=== PATIENT | male | born 1925 | race Caucasian/White ===

== ENCOUNTER 2017-06-25 12:33 | Inpatient (IN) ==
--- NOTE | 2017-06-25 12:53 | Emergency Department Note ---
Elijah Vick Brittany, am scribing for, and in the presence of, Rodolfo Wyatt MD 12: 50. Yoselin Vick James D, MD, personally performed the services described in this documentation, ascribed by Michelle Nava in my presence, and it is both accurate and complete 252 . Arrival - Arrival Chief Complaint: Fall Stated Complaint: fall ED Nursing Triage Note: C/O Falling on Thursday., patient's daughter states that he was evaluated on thursday at [facility] and had xray and lab's., patients daughter states she is wanting a second opinion with the patient to make sure nothing else is going on Mode of Arrival: Stretcher Limitations: No Limitations Source: Family - History of Present Illness HPI Narrative: This is an 89 y/o male,who presents to the ED by EMS for further evaluation S/P fall which occurred 6 days ago. His daugter pt was seen and evaluated 3 days ago at [facility]. At this time, pt had lab-work and x-rays preformed. His daughter states, " I just want to get a second opion and make sure nothing else is going on." Patient is unable to stand. Apparently prior to his fall on 06/20/2017 he was ambulating with a walker, although marginally. Pt has no other complaints/pain in the ED at this time. Pt has a PMHx of dyslipidemia and cardiac dysrhythmia. Pt has had an eye surgery and orthopedic surgery. Pt has a family medical hx of skin cancer, diabetes, and stroke. Pt denies a social Hx. Onset (ago): day(s) (Started 6 days ago) Consistency: constant Severity: moderate Allergies/Adverse Reactions: Allergies Allergy/AdvReac Type Severity Reaction Status Date / Time No Known Allergies Allergy Verified 06/25/17 12:56 Home Medications: Home Medications Medication Instructions Recorded Confirmed Type Acetaminophen Tab [Tylenol Tab] 325 mg PO Q6H 10/16/16 10/17/16 History Aspirin [Ecotrin] 81 mg PO DAILY 10/16/16 10/17/16 History Bimatoprost 0.01% Oph Soln 0.03 drop LEFT EYE BEDTIME 10/16/16 10/17/16 History [Lumigan] Finasteride 5 mg PO DAILY 10/16/16 10/17/16 History Flecainide [Tambocor] 50 mg PO BID 10/16/16 10/17/16 History Gluc/Chad-MSM#1/C/Cheikh/Roosevelt/Bor 1 each PO DAILY 10/16/16 10/17/16 History [Osteo Bi-Flex Caplet] Multivitamin (Ocuvite) [Ocuvite] 1 tablet PO DAILY 10/16/16 10/17/16 History Oxybutynin Chloride [Oxybutynin 10 mg PO DAILY 10/16/16 10/17/16 History Chloride ER] Tamsulosin [Flomax] 0.8 mg PO DAILY 10/16/16 10/17/16 History HYDROcodone/ACETAMIN 7.5-325 1 tablet PO Q4H PRN #30 tablet 10/17/16 Rx [[place] 7.5-325] Metoprolol Tartrate Tab [Lopressor 25 mg PO BID #60 tablet 10/18/16 Rx Tab] Medical,Surgical,& Family Hx - Medical History Cardio: History of: Cardiac Dysrhythmia Neurology: No history of: Seizures Endocrine: History of: Dyslipidemia Respiratory: History of: Obstructive Sleep Apnea Genitourinary: History of: Bladder Problem (urinary freq and urgency), Prostate Problems Other: History of: Cancer (skin cancer 09/2016) - Surgical History HEENT Surgeries: Surgical HX of: Eye Surgery (left eye) Orthopedic Surgeries: Surgical HX of;: Orthopedic Surgery (right lower leg fracture 1989) - Family History Family History: Reports;: Family Cancer (skin cancer), Family Diabetes (aunt), Family Stroke (mother) - Social History Smoking Status: Never smoker Frequency of Alcohol Use: None Type of Drug Use: None Exam Vital Signs: Vital Signs Temperature 98.9 F 06/25/17 12:34 Pulse Rate 78 06/25/17 13:50 Respiratory Rate 18 06/25/17 13:50 Blood Pressure 161/73 06/25/17 13:50 O2 Sat by Pulse Oximetry 100 06/25/17 13:50 GENERAL: This is a well-nourished well-developed chronically ill-appearing white male in no apparent distress. VITAL SIGNS: Reviewed HEENT: Head is atraumatic and normocephalic. Pupils are equal round react to light. Extraocular movements are intact. Oropharynx is benign with dry mucous membranes. NECK: Neck is soft and supple without tenderness. There are no masses. There is no lymphadenopathy. LUNGS: Lungs are clear to auscultation. Chest rises symmetrically. There is no chest wall tenderness. CV: Heart is regular rate and rhythm without murmurs rubs or gallops. ABDOMEN: Abdomen is soft, nontender to palpation. There are no abdominal abnormal masses palpated. There is no organomegaly. Bowel sounds are present and active. SKIN: Skin is warm and dry. No rash. EXTREMITIES: Patient has full range of motion without tenderness. There is no pedal edema. NEUROLOGIC: Awake alert and oriented 4. Cranial nerves II through XII are grossly intact. Motor is 2 over 5 in both lower extremities, 4/5 in both upper extremities. There is decreased sensation to light touch in the lower extremities bilaterally in a stocking glove distribution consistent with peripheral polyneuropathy. Deep tendon reflexes are 2+ and bilaterally equal. Course - Consultations Consultation #1: Discussed with hospitalist. Patient will be seen in the emergency department. Time: 14:20 Results - Labs CBC & BMP: 06/25/17 13:05 06/25/17 13:05 Lab Results: I have reviewed the patients labs - Diagnostic Findings Procedure: CT: image reviewed by me (CT head: No acute intracranial lesion or hemorrhage.) Disposition Clinical Impression: Generalized weakness, Peripheral polyneuropathy, Lower extremity weakness, Gait apraxia Case discussed with: patient, patient's family Disposition: Still a Patient Condition: Stable Time of Disposition: 14:20
[2017-06-25 13:25] LABS: Basophils % 0.3 % (0.0-0.8); Hematocrit 39.2 VOL% (42.0-52.0); Hemoglobin 13.9 GM/DL (14.0-18.0); Immature Granulocytes % 0.5 %; Immature Granulocytes Absolute 0.05 #; Lymphocytes # 2.3 10*3/uL (1.4-4.0); Mean Corpuscular HGB Conc 35.5 GM/DL (32-36); Mean Corpuscular Hemoglobin 30 PG (27-34); Mean Corpuscular Volume 83.9 FL (87-102); Mean Platelet Volume 10.3 FL (9.6-12.0); Monocytes % 9.8 % (1.7-12.7); Neutrophils % 67.4 % (38.7-73.9); Platelet Count 195 T/CUMM (130-400); Red Blood Count 4.67 MC/CUMM (3.8-5.5); Red Cell Distribution Width 13.3 % (9.3-17.3); White Blood Count 10.4 T/CUMM (4-12)
--- NOTE | 2017-06-25 13:32 | CT Report ---
CT brain Indication: Lower extremity weakness, neuropathy Comparison: None available Technique: Axial CT imaging of the brain is performed without contrast with 3 mm increments. Findings: No evidence of hemorrhage, mass mass effect midline shift or acute infarct seen. There is moderate diffuse cerebral atrophy. There are areas of decreased density seen within the white matter. Otherwise the brain parenchyma attenuation and differentiation appears within normal limits. The ventricles and cisterns are normal in caliber. No cranial or skull base abnormality is identified. Impression: No evidence of acute process or interval change. This CT exam was performed using one or more the following dose reduction techniques: Automated exposure control, adjustment of the MA and/or KV according to patient size, or use of iterative reconstruction technique. PROCEDURE INTERPRETED AT [facility] DEPARTMENT OF RADIOLOGY Final Report Signed by: Dr. William Weldon
[2017-06-25 14:04] LABS: Albumin 3.5 G/DL (3.4-5.0); Bilirubin,Total 1.2 MG/DL (0.2-1.0); Calcium 9.2 MG/DL (8.5-10.1); Potassium 4.4 MMOL/L (3.5-5.1); Total Protein 6.9 G/DL (6.4-8.3)
[2017-06-25 14:05] LABS: Apearance,Urine CLEAR (Clear); Bilirubin,Urine Negative (Negative); Blood, Urine Negative (Negative); Glucose,Urine (UA) Negative (Negative); Ketones,Urine Negative (Negative); Mucus,Urine Occasional /LPF (Occasional); Nitrite,Urine Negative (Negative); Protein,Urine Negative; RBC,Urine 1 /HPF (0-4); Urine Color Yellow (Yellow); Urine Urobilinogen < 2.0 EU/DL (0.2-1.0); WBC,Urine <1 /HPF (0-6)
[2017-06-25] MEDS ORDERED: DOCUSATE SODIUM 100 MG CAPSULE PO PRN (15:10)
[2017-06-25] MEDS ORDERED: ONDANSETRON 4 MG/2 ML VIAL IV PRN (15:10)
[2017-06-25] MEDS ORDERED: FUROSEMIDE 40 MG/4 ML VIAL IV STA (15:15)
[2017-06-25] MEDS ORDERED: FUROSEMIDE 40 MG/4 ML VIAL ONE (15:20)
--- NOTE | 2017-06-25 15:31 | Hospitalist History & Physical ---
Assessment and Plan (1) Gait apraxia Status: Acute Assessment and plan: Per daughter report, the patient has been non-ambulatory since he sustained a fall 6 days ago. The family reported that the patient is normally ambulatory and ambulates with a front rolling walker however he ambulates very slowly. She reported that each time the patient attempts to stand that his "legs give out". Upon visual inspection, the patient's legs were noted to be grossly edematous however no acute or profound deformities were noted. We will obtain x -rays for good measures. In addition, the patient has a very complex neurological history significant for cerebrovascular accident and cerebral aneurysm. CT scan was initially unremarkable; however at some point in time the patient will need MRI to rule out any acute processes. We will order MRI in a.m. Current Visit: Yes (2) Generalized weakness Status: Acute Assessment and plan: The daughter reported that the patient has experienced a significant decline in his functional status since sustaining a fall 6 days ago. She reports that the patient has become nonambulatory and unable to bear weight bilaterally. We will x-ray the patient's lower extremities, cervical, lumbar and thoracic spine. If findings are negative, we will consult PT and OT to evaluate and treat. Current Visit: Yes (3) Edema Status: Acute Assessment and plan: The patient's edema is chronic in nature per family report. We will gently diurese and obtain bilateral venous Doppler studies to rule out DVT. Current Visit: No History of Present Illness Chief complaint: Fall History of present illness: This is a very pleasant 89-year-old male that presented to the ED at [facility] this afternoon for the evaluation of a ground-level fall. The patient has a long and complex medical history significant for benign localized hyperplasia of the prostate, nonruptured cerebral aneurysm, cerebrovascular accident, cerebrovascular disease, chronic atrial fibrillation, hypertension, congestive heart failure, hyperlipidemia, anemia, obstructive sleep apnea, Olecranon bursitis of the right elbow, vitamin D deficiency, chronic lower extremity edema, and dementia. Patient has a surgical history significant for left eye surgery, and right open reduction and internal fixation of the right lower leg. The daughter reports the onset of symptoms 6 days prior to presentation. The patient was seen and evaluated 3 days ago at a restaurant clinic. At that time the patient was evaluated and labs were obtained; no abnormalities were noted. Since the fall 6 days ago, the daughter noted a gradual decline in her father's functional status. She reported that he generally ambulates very slow with a front rolling walker however, in recent days her brother has not been able to stand nor ambulate. In addition, the daughter reports that during the fall her son assisted her father up and thereafter her father has been complaining of some right knee pain. She became very concerned regarding the sudden changes in her father's functional ability and transported her father to the ED for further evaluation. The patient was assessed at the time of ED presentation. Labs were obtained; complete blood count reported white blood cell count 18.4, hemoglobin 13.9, hematocrit 39.2, and platelet count 195. Chemistry panel reported sodium at 136 , potassium 4.4, chloride 101, carbon dioxide 28, BUN 21, creatinine 1.20, glucose 117, calcium 9.2, total bilirubin 1.20, and albumin at 3.5. Urinalysis was essentially unremarkable. CT he had reported no evidence of acute process or interval change. After brief discussion with both Dr. Wyatt and Dr. Paris, the patient will be admitted to the hospitalist service for continuation of care. Due to the patient's complex cardiac history, a cardiology consultation has been requested. Home medications have been reviewed and reconciled CODE STATUS discussed; patient is a FULL CODE. Home Medications Medication Instructions Recorded Confirmed Type Acetaminophen Tab [Tylenol Tab] 325 mg PO Q6H 10/16/16 06/25/17 History Tamsulosin [Flomax] 0.4 mg PO QPM 10/16/16 06/25/17 History Metoprolol Tartrate Tab [Lopressor 25 mg PO BID #60 tablet 10/18/16 06/25/17 Rx Tab] Furosemide [Furosemide] 20 mg PO QAM 06/25/17 06/25/17 History Vit C/Vit E AC/Lut/Copper/Zinc 1 each PO BID 06/25/17 06/25/17 History [Preservision Lutein Softgel] Allergies Allergy/AdvReac Type Severity Reaction Status Date / Time No Known Allergies Allergy Verified 06/25/17 12:56 Medical,Surgical,& Family Hx - Medical History Cardio: History of: Cardiac Dysrhythmia, Hypertension, Pacemaker Neurology: No history of: Seizures Endocrine: History of: Dyslipidemia Respiratory: History of: Obstructive Sleep Apnea Genitourinary: History of: Bladder Problem (urinary freq and urgency), Prostate Problems Other: History of: Cancer (skin cancer 09/2016) - Surgical History HEENT Surgeries: Surgical HX of: Eye Surgery (left eye) Orthopedic Surgeries: Surgical HX of;: Orthopedic Surgery (right lower leg fracture 1989) - Family History Family History: Reports;: Family Cancer (skin cancer), Family Diabetes (aunt), Family Stroke (mother) - Social History Smoking Status: Never smoker Frequency of Alcohol Use: None Type of Drug Use: None 12 point system: reviewed and no additional remarkable complaints except as stated Exam - Constitutional Vitals: Period Temp Pulse Resp BP Sys/Michaels Pulse Ox Last 24 Hr 98.9 F-98.9 F 76-88 16-18 132-172/64-91 95-100 General appearance: normal weight, no acute distress - Head Head exam: Present: normal inspection, normocephalic, atraumatic - Eye Eye exam: Present: EOMI. Absent: conjunctival injection Pupils: Present: PURVI, normal accommodation - ENT ENT exam: Present: normal exam, normal external ear exam, normal oropharynx - Neck Neck exam: Present: normal inspection. Absent: lymphadenopathy, meningismus, thyromegaly - Respiratory Respiratory exam: Present: clear to auscultation bilaterally. Absent: rales, rhonchi, stridor, wheezes - Cardiovascular Cardiovascular exam: Present: regular rate and rhythm. Absent: carotid bruit, diastolic murmur, gallop, JVD, rubs, systolic murmur - GI/Abdominal GI/Abdominal exam: Present: normal bowel sounds, soft. Absent: distended, firm , guarding, tenderness - Extremities Exam Extremities exam: Present: normal inspection, normal capillary refill, edema (+ 4 edema noted to bilateral lower extremity) - Back Exam Back exam: Present: normal inspection - Neurological Exam Neurological exam: Present: alert, oriented X3, CN II-XII intact - Psychiatric Psychiatric exam: Present: normal affect, normal mood - Skin Skin exam: Present: normal color, warm, dry Results - Labs CBC & BMP: 06/25/17 13:05 06/25/17 13:05 Lab Results: I have reviewed the past 24 hour labs
--- NOTE | 2017-06-25 16:15 | XRay Report ---
XR ankle 2V BI Indication: Pain Comparison: None available Findings: No evidence of fracture seen. The alignment of the joints appears normal. Mild bilateral ankle degenerative change is present. No soft tissue abnormality is seen. Impression: Mild bilateral ankle osteoarthrosis. PROCEDURE INTERPRETED AT [facility] DEPARTMENT OF RADIOLOGY Final Report Signed by: Dr. William Weldon
--- NOTE | 2017-06-25 16:18 | XRay Report ---
XR femur BI Indication: Pain, edema Comparison: None available Findings: No evidence of fracture seen. The alignment of the joints appears normal. Mild bilateral hip and moderate bilateral tricompartmental knee degenerative change is present. There is joint effusion present in the right knee. No other soft tissue abnormality is seen. Impression: Right knee joint effusion. Hip and knee osteoarthrosis. PROCEDURE INTERPRETED AT [facility] DEPARTMENT OF RADIOLOGY Final Report Signed by: Dr. William Weldon
--- NOTE | 2017-06-25 16:20 | XRay Report ---
XR lumbar spine AP/LAT Indication: Back pain Comparison: None available Findings: No fracture is seen. Vertebral body heights and alignment are normal. There is loss of disc space and degenerative change severe at L2-3 and moderate at L3-4 and L4-5 and L5-S1. Mild to moderate changes are present remaining levels. Large amount of facet joint degenerative change is present in the lower lumbar spine. Impression: Multilevel degenerative changes as described above. PROCEDURE INTERPRETED AT [facility] DEPARTMENT OF RADIOLOGY Final Report Signed by: Dr. William Weldon
--- NOTE | 2017-06-25 16:22 | XRay Report ---
XR thoracic spine 2V ap/lat Indication: Back pain Comparison: None available Findings: No fracture is seen. Vertebral body heights and alignment are normal. There is mild to moderate multilevel disc space height loss and degenerative change. Impression: Mild to moderate degenerative changes thoracic spine. PROCEDURE INTERPRETED AT [facility] DEPARTMENT OF RADIOLOGY Final Report Signed by: Dr. William Weldon
--- NOTE | 2017-06-25 16:24 | Ultrasound Report ---
Venous Doppler ultrasound bilateral lower extremity Indication: Edema Comparison: None available Findings: No evidence of echogenic, noncompressible thrombus seen in the visualized veins of the extremities. Color Doppler venous waveform pattern is within normal limits. Impression: No evidence of deep venous thrombosis. Ultrasound images stored and captured. PROCEDURE INTERPRETED AT [facility] DEPARTMENT OF RADIOLOGY Final Report Signed by: Dr. William Weldon
--- NOTE | 2017-06-25 16:27 | XRay Report ---
XR cervical spine AP/LAT Indication: Cervicalgia Comparison: None available Findings: No fracture is seen. Vertebral body heights and alignment are normal. There is loss of disc space and degenerative change of moderate to severe at C3-4 C4-5 C5-6 and C6-C7. Hypertrophic osteophytes are present with bridging anteriorly. Impression: Multilevel spondylitic changes as described above. PROCEDURE INTERPRETED AT [facility] DEPARTMENT OF RADIOLOGY Final Report Signed by: Dr. William Weldon
[2017-06-25 16:38] LABS: Risk Ratio 5.4; VLDL CHOLESTEROL 43.2 MG/DL
[2017-06-25 16:39] LABS: Magnesium 2.3 MG/DL (1.8-2.4); Thyroid Stimulating Hormone 2.29 uIU/ml (0.358-3.74)
[2017-06-25] MEDS: ACETAMINOPHEN 325 MG TABLET PO SCH (18:57)
[2017-06-25] MEDS: ENOXAPARIN 40 MG/0.4 ML SYRINGE SUBCUT SCH (18:57)
[2017-06-25] MEDS: MULTIVITAMIN (OCUVITE) TABLET PO SCH (20:37)
[2017-06-25] MEDS: TAMSULOSIN 0.4 MG CAPSULE PO SCH (20:37)
[2017-06-25] MEDS: METOPROLOL TARTRATE 25 MG TABLET PO SCH (20:37)
[2017-06-26] MEDS: ACETAMINOPHEN 325 MG TABLET PO SCH ×6 (01:00→23:46)
[2017-06-26] MEDS ORDERED: LORazepam 2 MG/1 ML VIAL IV ONE (03:07)
[2017-06-26 05:40] LABS: Basophils % 0.2 % (0.0-0.8); Hematocrit 36.4 VOL% (42.0-52.0); Hemoglobin 12.6 GM/DL (14.0-18.0); Immature Granulocytes % 0.3 %; Immature Granulocytes Absolute 0.03 #; Lymphocytes # 1.9 10*3/uL (1.4-4.0); Lymphocytes % 19.4 % (21.2-54.2); Mean Corpuscular HGB Conc 34.6 GM/DL (32-36); Mean Corpuscular Hemoglobin 29 PG (27-34); Mean Corpuscular Volume 84.5 FL (87-102); Mean Platelet Volume 10.3 FL (9.6-12.0); Monocytes # 1.1 10*3/uL (0.11-0.8); Monocytes % 11.6 % (1.7-12.7); Neutrophils # 6.5 10*3/uL (1.4-7.4); Neutrophils % 68.5 % (38.7-73.9); Platelet Count 177 T/CUMM (130-400); Red Blood Count 4.31 MC/CUMM (3.8-5.5); White Blood Count 9.5 T/CUMM (4-12)
[2017-06-26 06:15] LABS: Albumin 2.8 G/DL (3.4-5.0); Bilirubin,Total 1.4 MG/DL (0.2-1.0); Calcium 8.5 MG/DL (8.5-10.1); Magnesium 2.3 MG/DL (1.8-2.4); Potassium 4.1 MMOL/L (3.5-5.1); Total Protein 5.9 G/DL (6.4-8.3)
--- NOTE | 2017-06-26 07:18 | XRay Report ---
Exam: XR chest 1V portable Date: 06/26/2017 4:00 AM Indication: Shortness of breath Comparison: 10/18/2016 Technical: AP Findings: Cardiac pacing device is present with atrial ventricular leads. The heart is normal in size. ASVD is present. No obvious infiltrates. Mediastinum is bony structures reveal no acute findings with lateral marginal osteophytes present. Arthritic changes are present over the shoulders. No pneumothorax. Minimal bibasal atelectasis without effusions or consolidations Impression: 1. Stable appearance of the cardiac pacer device 2. No obvious consolidating infiltrates with minimal atelectatic change in the bases bilaterally PROCEDURE INTERPRETED AT [facility] DEPARTMENT OF RADIOLOGY Final Report Signed by: Dr. Tomi Lee
--- NOTE | 2017-06-26 09:09 | Hospitalist Progress Note ---
Assessment and Plan (1) HTN (hypertension) Status: Acute Assessment and plan: The patient's family wishes to move away from metoprolol due to concerns about worsening his mental status. I am going to switch him to Coreg. The patient's family is worried about an occult fracture of the hip or right knee. I am going to order CAT scan of both. I have asked the case management specialist to discuss equipment needs with the family and home health alternatives. I anticipate discharge home tomorrow. Current Visit: No Qualifiers: Hypertension type: essential hypertension Qualified Code(s): I10 - Essential (primary) hypertension (2) Peripheral polyneuropathy Status: Acute Current Visit: Yes (3) Generalized weakness Status: Acute Current Visit: Yes (4) Lower extremity weakness Status: Acute Current Visit: Yes (5) Gait apraxia Status: Acute Current Visit: Yes Hospitalist: Subjective Interval history: The patient was admitted to the hospital yesterday afternoon on account of right hip and right knee pain. Plain x-rays did not reveal any fracture. The patient continues to have considerable right knee pain and lack of function and inability to stand. I had 30 minute patient family conference with the patient's daughter concerning the patient's stepwise decline in mental status. The patient has evidence of behavioral changes consistent with Alzheimer's process which became symptomatic about 2 years ago. The patient had a stepwise decline last May when he went from being an avid book reader with 5 or 6 books consumed per week down to being uninterested in reading books. The patient would rate the same book over and over without realizing. The patient's family began staying with him and rotating weeks. They live out of town. They have been able to maintain his independent function through this assistance. In the last 4 weeks the patient has lost even disability to live in an assisted fashion. The patient has had sundowning behaviors at home which require nightly interventions. The family now notices his mobility is getting worse and are planning for an immobile future. I discussed with him the fact that he is gone from an assisted living status in the last year now being and longterm living level. I have asked the case management specialist to assist them in determining where it is best to care for him and what equipment that they will need. Exam - Constitutional Vitals: Period Temp Pulse Resp BP Sys/Michaels Pulse Ox Last 24 Hr 98.9 F-100.0 F 70-96 16-20 112-179/55-92 91-100 General appearance: no acute distress (The patient has short-term memory loss and has mild confusion.) - Respiratory Respiratory exam: Present: clear to auscultation bilaterally - Cardiovascular Cardiovascular exam: Present: regular rate and rhythm - GI/Abdominal GI/Abdominal exam: Present: normal bowel sounds - Extremities Exam Extremities exam: Present: other (The right knee is swollen and tender consistent with osteoarthritis. He has mild range of motion pain in the right hip.) Results - Labs CBC & BMP: 06/26/17 05:01 06/26/17 05:01 Lab Results: I have reviewed the past 24 hour labs
[2017-06-26] MEDS: METOPROLOL TARTRATE 25 MG TABLET PO SCH (09:53)
[2017-06-26] MEDS: CARVEDILOL 12.5 MG TABLET PO SCH ×2 (10:05→20:48)
[2017-06-26] MEDS: PANTOPRAZOLE 40 MG TABLET PO SCH (10:05)
[2017-06-26] MEDS: MULTIVITAMIN (OCUVITE) TABLET PO SCH ×2 (10:05→20:48)
--- NOTE | 2017-06-26 10:06 | Case Mgmt Physician Query Form ---
TB Signs and Symptoms Screening ([place]) INSTRUCTIONS: To be completed annually on residents/staff with a significant Tuberculin Skin Test (TST) upon admission/hire or a prior significant TST. To be completed on all staff at hire. Please respond to each listed symptom with an (X) in either the "YES" or "NO" box. Do you currently have any of the following symptoms: YES NO ( ) ( X) A cough If yes, is it: ( ) Productive ( ) Non- productive ( ) ( X) Hemoptysis (spitting up blood) ( ) (X ) Chest pains ( ) (X ) Weight Loss ( ) (X ) Fever ( ) (X ) Night Sweats ( ) (X ) Weakness ( ) (X ) Loss of Appetite ( ) (X ) Difficulty Breathing If you answered YES" to any of the above questions, how long have symptoms been present? Comments: TAVON
[2017-06-26] MEDS ORDERED: TUBERCULIN SKIN TEST 0.1 ML SYRINGE INTRADERM ONE (11:00)
[2017-06-26] MEDS: ACETAMINOPHEN 325 MG TABLET PO PRN (12:34)
--- NOTE | 2017-06-26 14:31 | CT Report ---
History: Knee pain after fall Date: 06/26/2017 Study: CT right knee without contrast Comparison exam: Right femur x-ray 06/25/[address] sections were obtained through the right knee without IV contrast. Multiplanar reconstruction images are also evaluated. This CT exam was performed using one or more the following dose reduction techniques: Automated exposure control, adjustment of the MA and/or KV according to patient size, or use of iterative reconstruction technique. There is no acute fracture or dislocation. There is moderate osteophyte formation in all 3 knee compartments. There is only mild joint space narrowing and eburnation in the medial knee compartment. There is a moderate suprapatellar joint effusion. There is chondrocalcinosis of the menisci such as that which can be seen with CPPD. There is a small 4 mm metallic density foreign body in the soft tissues posteriorly and medially at the proximal tibial metaphysis level, presumably chronic. Impression: No acute fracture. Osteoarthritis. Joint effusion. Chondrocalcinosis of the menisci PROCEDURE INTERPRETED AT [facility] DEPARTMENT OF RADIOLOGY Final Report Signed by: Dr. Karen Leal
--- NOTE | 2017-06-26 14:37 | CT Report ---
History: Right hip pain after fall Date: 06/26/2017 Study: 06/26/2017 Comparison exam: No previous hip CT Thin spiral CT sections were obtained through the right hip without IV contrast. Multiplanar reconstruction images are also evaluated. This CT exam was performed using one or more the following dose reduction techniques: Automated exposure control, adjustment of the MA and/or KV according to patient size, or use of iterative reconstruction technique. There is no fracture, dislocation, or acute bony abnormality. There is moderate joint space narrowing of the right hip with mild osteophyte formation. There is some chondrocalcinosis of the labrum of the hip. There is a fat-containing right inguinal hernia. A Denis catheter is in place. There is a small amount of air within the lumen of the bladder which is presumably related to recent catheter placement Impression: No acute bony abnormality. Osteoarthritis. Chondrocalcinosis of the labrum. Fat-containing right inguinal hernia PROCEDURE INTERPRETED AT [facility] DEPARTMENT OF RADIOLOGY Final Report Signed by: Dr. Karen Leal
--- NOTE | 2017-06-26 16:44 | Cardiology Consult Note ---
Peter Vick Vanessa RN, am scribing for, and in the presence of, Irene Boo DO 16 :43. Assessment and Plan - Time spent with patient Time spent with patient: Greater than 30 minutes (Due to assessment, planning, pigmentation, medication review) (1) Dementia Status: Chronic Assessment and plan: Patient has had a progressive decline of cognitive function over the past 12 months or so. Patient is now having increasing sundowning behaviors and is losing ability to function in assisted living environment. Patient is being evaluated for transfer to [facility]. Current Visit: Yes Qualifiers: Dementia type: Alzheimer's disease (2) Generalized weakness Status: Chronic Assessment and plan: PT and OT have been consulted. Current Visit: Yes (3) Gait apraxia Status: Acute Assessment and plan: This has gradually worsened, and he has had multiple falls. His mobility is also severely reduced now. PT and OT have been consulted as well. Current Visit: Yes (4) HTN (hypertension) Status: Chronic Assessment and plan: Family reports patient experienced some rebound hypertension and they resumed metoprolol tartrate. Since admission, family has requested to not continue metoprolol. Metoprolol discontinued. Carvedilol 12.5 mg by mouth twice daily has been started per hospital medicine. Agree with plans. Current Visit: No Qualifiers: Hypertension type: essential hypertension Qualified Code(s): I10 - Essential (primary) hypertension (5) Paroxysmal atrial fibrillation Status: Chronic Assessment and plan: Ventricular response is controlled. Patient has appropriate AV pacing. He has not anticoagulated for stroke prevention due to age, high fall risk, and history of multiple falls. His daughter states that he falls multiple times in a week. She states that he fell on Thursday and has not gotten up since this time. Current Visit: Yes (6) Hyperlipidemia Status: Chronic Assessment and plan: Patient is not currently on a lipid-lowering agent. FLP this admission noted. Current Visit: Yes (7) Obstructive sleep apnea Status: Chronic Assessment and plan: Continue CPAP. Current Visit: Yes History of Present Illness - Data of Consult Patient: known to practice within the last 3 years Consult date: 06/26/17 Requesting Physician: Rachana Bah - Consult Narrative Reason for consult: s/p multiple falls & generalized weakness with positive cardiac history History of present illness: PRIMARY FABRICATOR SPECIAL ITEMS: DR. MCGINNIS Mr. Menchaca is a 89 year old white male with risk factor significant for: Age, hypertension, dyslipidemia, and he has never smoked. Past medical history includes paroxysmal atrial fibrillation, CVA, Alzheimer's dementia, and third- degree AVB now status post dual-chamber pacemaker implant. Patient also has chronic bilateral lower extremity edema. Patient was last seen in clinic by Dr. Mcginnis on April 02. Patient's family was present with him. Family requested to stop the flecainide, and upon discontinuation of the medication, pacemaker programmed for atrial preference pacing to manage any potential atrial fibrillation. It was also discussed with the family, at their request, to discontinue the metoprolol by weaning patient off of it over a period of 3 days. Pacemaker interrogation June 16 with appropriate functioning and essentially 100% AV paced. Patient was brought to [place]'s ED yesterday afternoon June 25 by his family for evaluation status post fall. Patient has reportedly had multiple falls at home over the past couple weeks, he has had an increase in urinary incontinence , and he has not been able to do a lot of walking or weightbearing activity. Patient has also reportedly had a personality change. While in the ER, patient reported some right hip and knee pain. Venous Doppler ultrasound negative for DVT finding. Chest x-ray with minimal bibasilar atelectasis. Patient has had thoracic, cervical, ankle/femur x-rays which show degenerative changes but no fractures or other abnormality. CT of knee and hip were obtained this morning. Cardiology was consulted to see patient because he has a cardiac history. Patient seen and examined. Echocardiogram is being obtained at bedside currently. Mr. Menchaca is is no acute distress. He is pleasant but is mildly confused. Denies chest pain/discomfort, dyspnea, or anginal complaint. Denies orthopnea, PND, palpitations, recent worsening in severity of lower extremity edema. Patient's daughter is present with him this morning. Daughter reports patient is being set up for discharge [facility] in [place] for rehab and continuity of care. Patient has reportedly had a significant mental status decline over the past month, and he is no longer able to function with assisted living environment. His mobility is also greatly decreasing, and he is having an increase in behavior requiring lots of help at night at home by his family, and it has gotten to the point that the family feels they are not able to continue doing this due to patient's physical size and increasing combativeness at night. Labs reviewed. Triglycerides and total cholesterol slightly elevated 216, 227 respectively. Labs otherwise overall unremarkable. BP 140/70. EKG and ekg monitor with AV pacing. CC: Eitan Dior MD - Home Medications and Allergies Home Medications: Home Medications Medication Instructions Recorded Confirmed Type Acetaminophen Tab [Tylenol Tab] 325 mg PO Q6H 10/16/16 06/25/17 History Tamsulosin [Flomax] 0.4 mg PO QPM 10/16/16 06/25/17 History Metoprolol Tartrate Tab [Lopressor 25 mg PO BID #60 tablet 10/18/16 06/25/17 Rx Tab] Furosemide [Furosemide] 20 mg PO QAM 06/25/17 06/25/17 History Vit C/Vit E AC/Lut/Copper/Zinc 1 each PO BID 06/25/17 06/25/17 History [Preservision Lutein Softgel] Allergies/Adverse Reactions: Allergies Allergy/AdvReac Type Severity Reaction Status Date / Time No Known Allergies Allergy Verified 06/25/17 12:56 ROS unobtainable: due to mental status, due to dementia 12 point system: reviewed and no additional remarkable complaints except as stated (The patient's daughter I discussed with the bedside. He has had just a general downhill decline and he has fallen many times normally he is able to get up on his own. He lives with his 84-year-old he fell on Thursday just has not been able to recover. I do not find any evidence of any acute ongoing cardiopulmonary process he has a pacemaker that is about 7 months old male I think we can discontinue his Holter monitor because it has been a point of contention and aggravation for him. I discussed with his daughter at the bedside I will review his transthoracic echo and discuss with her tomorrow) Medical,Surgical,& Family Hx - Medical History Cardio: History of: Cardiac Dysrhythmia (Afib), Hypertension, Pacemaker Neurology: No history of: Seizures HEENT: History of: Glaucoma (Bilaterally) Endocrine: History of: Dyslipidemia Respiratory: History of: Obstructive Sleep Apnea Genitourinary: History of: Bladder Problem (urinary freq and urgency), Prostate Problems Gastrointestinal: History of: GERD Other: History of: Cancer (skin cancer 09/2016) - Surgical History HEENT Surgeries: Surgical HX of: Eye Surgery (Cataract Left Eye) Abdominal Surgeries: Surgical HX of: Hernia Repair Orthopedic Surgeries: Surgical HX of;: Orthopedic Surgery (right lower leg fracture 1989) - Family History Family History: Reports;: Family Cancer (skin cancer), Family Diabetes (aunt), Family Stroke (mother) - Social History Smoking Status: Never smoker Frequency of Alcohol Use: None Type of Drug Use: None Physical Examination Vital Signs Temp Pulse Resp BP Pulse Ox 98.9 F 83 18 132/77 97 06/25/17 12:34 06/25/17 12:34 06/25/17 12:34 06/25/17 12:34 06/25/17 12:34 General: Present: No Apparent Distress, Other (pleasantly; mildly confused at times) HEENT: Present: EOMI, PERRL, Normocephaly. Absent: Jaundice, Pallor Neck: Present: Supple Neck, Midline Trachea Cardiac: Present: Irregularly Regular, S1/S2, No Murmur, Other (Rhythm strips are primarily paced with intermittent breakthrough rate.). Absent: Tachycardia , Bradycardia Lungs: Present: Clear Ascult./Percussion, No Wheeze, Rales, Rhonchi Neuro: Present: Weakness, Grossly Intact. Absent: Numbness, Resting Tremor, Essential Tremor Abdomen: Present: Soft, Active Bowel Sounds. Absent: Ascites, Tender, Firm, Distended Skin: Present: Clear. Absent: Rash, Suspicious Lesions, Bruising Musculoskeletal: Present: Decreased Range of Motion, No Fluid Collection Extremities: Present: No Clubbing, No Cyanosis, Edema (1-2+ RLE, edamatous right kneecap), Capillary Refill (Normal), Other (Warm, dry) Result/EKG - Labs CBC & BMP: 06/26/17 05:01 06/26/17 05:01 Lab Results: I have reviewed the past 24 hour labs Labs: Laboratory Results - last 24 hr 06/25/17 06/25/17 06/25/17 13:05 13:05 13:05 WBC 10.4 RBC 4.67 Hgb 13.9 L Hct 39.2 L MCV 83.9 L MCH 30 MCHC 35.5 RDW 13.3 Plt Count 195 MPV 10.3 Neut % (Auto) 67.4 Lymph % (Auto) 22.0 Dale % (Auto) 9.8 Eos % (Auto) 0.0 Baso % (Auto) 0.3 Neut # (Auto) 7.0 Lymph # (Auto) 2.3 Dale # (Auto) 1.0 H Eos # (Auto) 0.0 Baso # (Auto) 0.0 Immature Gran % 0.5 Nucleated RBC % 0.0 Immature Gran # 0.05 Nucleated RBCs # 0.00 Immature Plt Fraction 0.0 Sodium 136 Potassium 4.4 Chloride 101 Carbon Dioxide 28 Anion Gap 11.4 BUN 21 H Creatinine 1.20 GFR Calculation 70 BUN/Creatinine Ratio 17.00 Glucose 117 H Calculated Osmolality 275.0 Calcium 9.2 Magnesium Total Bilirubin 1.20 H AST 20 ALT 20 Alkaline Phosphatase 94 B-Natriuretic Peptide Total Protein 6.9 Albumin 3.5 Globulin 3.4 Albumin/Globulin Ratio 1.0 L Triglycerides Cholesterol LDL Cholesterol VLDL Cholesterol HDL Cholesterol Heart Disease Risk Ratio Vitamin B12 508 Free T4 TSH 3rd Generation Urine Color Urine Appearance Urine pH Ur Specific Park Urine Protein Urine Glucose (UA) Urine Ketones Urine Blood Urine Nitrate Urine Bilirubin Urine Urobilinogen Urine Leukocytes Urine RBC Urine WBC Urine Mucus Ur Culture Indicated? 06/25/17 06/25/17 06/25/17 13:05 13:05 13:05 WBC RBC Hgb Hct MCV MCH MCHC RDW Plt Count MPV Neut % (Auto) Lymph % (Auto) Dale % (Auto) Eos % (Auto) Baso % (Auto) Neut # (Auto) Lymph # (Auto) Dale # (Auto) Eos # (Auto) Baso # (Auto) Immature Gran % Nucleated RBC % Immature Gran # Nucleated RBCs # Immature Plt Fraction Sodium Potassium Chloride Carbon Dioxide Anion Gap BUN Creatinine GFR Calculation BUN/Creatinine Ratio Glucose Calculated Osmolality Calcium Magnesium 2.3 Total Bilirubin AST ALT Alkaline Phosphatase B-Natriuretic Peptide 88 Total Protein Albumin Globulin Albumin/Globulin Ratio Triglycerides Cholesterol LDL Cholesterol VLDL Cholesterol HDL Cholesterol Heart Disease Risk Ratio Vitamin B12 Free T4 1.09 TSH 3rd Generation 2.290 Urine Color Urine Appearance Urine pH Ur Specific Park Urine Protein Urine Glucose (UA) Urine Ketones Urine Blood Urine Nitrate Urine Bilirubin Urine Urobilinogen Urine Leukocytes Urine RBC Urine WBC Urine Mucus Ur Culture Indicated? 06/25/17 06/25/17 06/26/17 13:05 13:12 05:01 WBC 9.5 RBC 4.31 Hgb 12.6 L Hct 36.4 L MCV 84.5 L MCH 29 MCHC 34.6 RDW 13.0 Plt Count 177 MPV 10.3 Neut % (Auto) 68.5 Lymph % (Auto) 19.4 L Dale % (Auto) 11.6 Eos % (Auto) 0.0 Baso % (Auto) 0.2 Neut # (Auto) 6.5 Lymph # (Auto) 1.9 Dale # (Auto) 1.1 H Eos # (Auto) 0.0 Baso # (Auto) 0.0 Immature Gran % 0.3 Nucleated RBC % 0.0 Immature Gran # 0.03 Nucleated RBCs # 0.00 Immature Plt Fraction 0.0 Sodium Potassium Chloride Carbon Dioxide Anion Gap BUN Creatinine GFR Calculation BUN/Creatinine Ratio Glucose Calculated Osmolality Calcium Magnesium Total Bilirubin AST ALT Alkaline Phosphatase B-Natriuretic Peptide Total Protein Albumin Globulin Albumin/Globulin Ratio Triglycerides 216 H Cholesterol 227 H LDL Cholesterol 151.0 VLDL Cholesterol 43.2 HDL Cholesterol 42 Heart Disease Risk Ratio 5.40 Vitamin B12 Free T4 TSH 3rd Generation Urine Color Yellow Urine Appearance Clear Urine pH 6.0 Ur Specific Park 1.010 Urine Protein Negative Urine Glucose (UA) Negative Urine Ketones Negative Urine Blood Negative Urine Nitrate Negative Urine Bilirubin Negative Urine Urobilinogen < 2.0 H Urine Leukocytes Negative Urine RBC 1 Urine WBC <1 Urine Mucus Occasional Ur Culture Indicated? Not indicated 06/26/17 05:01 WBC RBC Hgb Hct MCV MCH MCHC RDW Plt Count MPV Neut % (Auto) Lymph % (Auto) Dale % (Auto) Eos % (Auto) Baso % (Auto) Neut # (Auto) Lymph # (Auto) Dale # (Auto) Eos # (Auto) Baso # (Auto) Immature Gran % Nucleated RBC % Immature Gran # Nucleated RBCs # Immature Plt Fraction Sodium 136 Potassium 4.1 Chloride 99 Carbon Dioxide 29 Anion Gap 12.1 BUN 22 H Creatinine 1.30 GFR Calculation 64 BUN/Creatinine Ratio 16.00 Glucose 110 H Calculated Osmolality 275.0 Calcium 8.5 Magnesium 2.3 Total Bilirubin 1.40 H AST 21 ALT 16 Alkaline Phosphatase 84 B-Natriuretic Peptide Total Protein 5.9 L Albumin 2.8 L Globulin 3.1 Albumin/Globulin Ratio 0.9 L Triglycerides Cholesterol LDL Cholesterol VLDL Cholesterol HDL Cholesterol Heart Disease Risk Ratio Vitamin B12 Free T4 TSH 3rd Generation Urine Color Urine Appearance Urine pH Ur Specific Park Urine Protein Urine Glucose (UA) Urine Ketones Urine Blood Urine Nitrate Urine Bilirubin Urine Urobilinogen Urine Leukocytes Urine RBC Urine WBC Urine Mucus Ur Culture Indicated? - Diagnostic Findings Procedure: Chest x-ray: image reviewed by me, report reviewed by me, Ultrasound : image reviewed by me, report reviewed by me, X-ray: image reviewed by me, report reviewed by me - EKG EKG results: interpreted by me, no acute changes Ema Vick Shea, , personally performed the services described in this documentation, ascribed by Teresita Green RN in my presence, and it is both accurate and complete [id number] .
--- NOTE | 2017-06-26 17:31 | ECHO Report ---
Grady Menchaca Exam Date: 06/26/2017 10:32 Referring Physician: Technologist: Irasema Dill RDCS Age: 89 Ht (in): 75 Wt (lb): 220 Gender: M Exam Location: [facility] Echo Indications: Weakness, Essential (primary) hypertension, CAD with hx SSS, Presence of cardiac pacemaker, Peripheral polyneuropathy, PERRY, Edema, unspecified, Ataxic gait BP: 140 / 71 HR: 96 Rhythm: Pacemaker Technical Quality: Limited IMPRESSIONS Left ventricular ejection fraction is estimated at 55 %. Diastolic parameters are equivocal. There is septal bounce either due to pacing or underlying bundle branch block. Tricuspid regurgitation velocities suggest a RVSP of 31 mmHg plus the right atrial pressure. Catheter/pacemaker wire in the right atrial cavity. Trace to mild mitral valve regurgitation. MEASUREMENTS (Male / Female) Normal Values 2D ECHO LV Diastolic Diameter PLAX 4.9 cm 4.2 - 5.9 / 3.9 - 5.3 cm LV Systolic Diameter PLAX 4.0 cm LV Fractional Shortening PLAX 18.5 % IVS Diastolic Thickness 1.2 cm 0.6 - 1.0 / 0.6 - 0.9 cm LVPW Diastolic Thickness 1.1 cm 0.6 - 1.0 / 0.6 - 0.9 cm RV Internal Dim ED PLAX 3.1 cm Aortic Root Diameter 3.3 cm LA Systolic Diameter LX 4.4 cm 3.0 - 4.0 / 2.7 - 3.8 cm DOPPLER TR Peak Velocity 280.0 cm/s TR Peak Gradient 31.4 mmHg FINDINGS Left Ventricle Normal left ventricular cavity size. Mild left ventricular hypertrophy. Left ventricular ejection fraction is estimated at 55 %. Diastolic parameters are equivocal. There is septal bounce either due to pacing or underlying bundle branch block Right Ventricle Mildly increased right ventricular size. Catheter/pacemaker wire visualized in the right ventricle. Right Atrium The right atrium is mildly enlarged. Catheter/pacemaker wire in the right atrial cavity. Left Atrium The left atrium is mildly enlarged. Mitral Valve Mildly thickened mitral valve. Trace to mild mitral valve regurgitation. Aortic Valve Aortic valve sclerosis without stenosis or regurgitation. Tricuspid Valve Morphologically normal tricuspid valve. Trace to mild tricuspid valve regurgitation. Tricuspid regurgitation velocities suggest a RVSP of 31 mmHg plus the right atrial pressure. Pulmonic Valve Morphologically normal pulmonic valve without significant stenosis. There is no pulmonic regurgitation. Pericardium Normal pericardium without effusion. Aorta Normal ascending aorta dimension. Irene Boo (Electronically Signed) Final Date: 26 June 2017 17:14
[2017-06-26] MEDS: ENOXAPARIN 40 MG/0.4 ML SYRINGE SUBCUT SCH (20:48)
[2017-06-26] MEDS: TAMSULOSIN 0.4 MG CAPSULE PO SCH (20:48)
[2017-06-27] MEDS: ACETAMINOPHEN 325 MG TABLET PO SCH ×3 (06:37→19:35)
[2017-06-27] MEDS: CARVEDILOL 12.5 MG TABLET PO SCH ×2 (09:42→20:28)
[2017-06-27] MEDS: FUROSEMIDE 20 MG TABLET PO SCH (09:43)
[2017-06-27] MEDS: PANTOPRAZOLE 40 MG TABLET PO SCH (09:43)
[2017-06-27] MEDS: MULTIVITAMIN (OCUVITE) TABLET PO SCH ×2 (09:44→20:28)
--- NOTE | 2017-06-27 10:40 | Cardiology Progress Note ---
Assessment and Plan (1) Dementia Status: Chronic Assessment and plan: Patient has had a progressive decline of cognitive function over the past 12 months or so. Patient is now having increasing sundowning behaviors and is losing ability to function in assisted living environment. Patient is being evaluated for transfer to [facility] Current Visit: Yes Qualifiers: Dementia type: Alzheimer's disease (2) Generalized weakness Status: Chronic Assessment and plan: PT and OT have been consulted. Current Visit: Yes (3) Gait apraxia Status: Acute Assessment and plan: This has gradually worsened, and he has had multiple falls. His mobility is also severely reduced now. PT and OT have been consulted as well. Current Visit: Yes (4) HTN (hypertension) Status: Chronic Current Visit: No Qualifiers: Hypertension type: essential hypertension Qualified Code(s): I10 - Essential (primary) hypertension (5) Paroxysmal atrial fibrillation Status: Chronic Assessment and plan: Ventricular response is controlled. Patient has appropriate AV pacing. He has not anticoagulated for stroke prevention due to age, high fall risk, and history of multiple falls. His daughter states that he falls multiple times in a week. She states that he fell on Thursday and has not gotten up since this time. Current Visit: Yes (6) Hyperlipidemia Status: Chronic Assessment and plan: Patient is not currently on a lipid-lowering agent. FLP this admission noted. Given his muscle weakness I think we should stay off a statin. Current Visit: Yes (7) Obstructive sleep apnea Status: Chronic Assessment and plan: Continue CPAP. Current Visit: Yes Cardiology - PN: Subj Interval history: I discussed the findings of the echo the patient and his daughter at the bedside. He remains very weak. There is appears to be no acute changes in his cardiovascular status appears to be stable. I have nothing further to add at this time and will sign off. I discussed with the patient's daughter. Anticipate transfer to swing bed/LTAC in early week. Case management is working on this. I suspect the patient will likely be a half-way candidate from this point forward. Exam (Progress Note) - Constitutional Vitals: Period Temp Pulse Resp BP Sys/Michaels Pulse Ox Last 24 Hr 97.8 F-99.9 F 84-94 16-20 131-160/63-76 90-98 General appearance: normal weight - Head Head exam: Present: normal inspection - Eye Eye exam: Present: EOMI Pupils: Present: PURVI - ENT ENT exam: Present: normal exam - Respiratory Respiratory exam: Present: clear to auscultation bilaterally - Cardiovascular Cardiovascular exam: Present: regular rate and rhythm - GI/Abdominal GI/Abdominal exam: Present: normal bowel sounds Result/EKG - Labs CBC & BMP: 06/26/17 05:01 06/26/17 05:01
--- NOTE | 2017-06-27 12:40 | Hospitalist Progress Note ---
Assessment and Plan (1) HTN (hypertension) Status: Chronic Assessment and plan: The patient is now on Coreg for blood pressure and heart rate control. Mental status is about the same. The patient's family has decided they wish him to be transferred to swing bed at [place] for further rehab. If the patient does not improve mental function he would then go to the half-way. Current Visit: No Qualifiers: Hypertension type: essential hypertension Qualified Code(s): I10 - Essential (primary) hypertension (2) Peripheral polyneuropathy Status: Acute Current Visit: Yes (3) Generalized weakness Status: Chronic Current Visit: Yes (4) Lower extremity weakness Status: Acute Current Visit: Yes (5) Gait apraxia Status: Acute Current Visit: Yes Hospitalist: Subjective Interval history: The patient's family has begun to accept his progressive dementia. They are making arrangements for transfer to swing bed in [place]. Exam - Constitutional Vitals: Period Temp Pulse Resp BP Sys/Michaels Pulse Ox Last 24 Hr 97.8 F-99.9 F 84-94 16-20 131-160/63-76 90-98 General appearance: no acute distress - Head Head exam: Present: normocephalic - Respiratory Respiratory exam: Present: clear to auscultation bilaterally - Cardiovascular Cardiovascular exam: Present: regular rate and rhythm - GI/Abdominal GI/Abdominal exam: Present: normal bowel sounds Results - Labs CBC & BMP: 06/26/17 05:01 06/26/17 05:01 Lab Results: I have reviewed the past 24 hour labs
[2017-06-27] MEDS: ACETAMINOPHEN 325 MG TABLET PO PRN (15:40)
[2017-06-27] MEDS: ENOXAPARIN 40 MG/0.4 ML SYRINGE SUBCUT SCH (20:28)
[2017-06-27] MEDS: TAMSULOSIN 0.4 MG CAPSULE PO SCH (20:28)
[2017-06-28] MEDS: ACETAMINOPHEN 325 MG TABLET PO SCH ×4 (01:47→18:37)
--- NOTE | 2017-06-28 08:15 | Hospitalist Progress Note ---
Assessment and Plan (1) HTN (hypertension) Status: Chronic Assessment and plan: The patient is now on Coreg for blood pressure and heart rate control. Mental status is about the same. The patient's family has decided they wish him to be transferred to swing bed at [place] for further rehab. If the patient does not improve mental function [facility] would then [facility]. Current Visit: No Qualifiers: Hypertension type: essential hypertension Qualified Code(s): I10 - Essential (primary) hypertension (2) Peripheral polyneuropathy Status: Acute Current Visit: Yes (3) Generalized weakness Status: Chronic Current Visit: Yes (4) Lower extremity weakness Status: Acute Current Visit: Yes (5) Gait apraxia Status: Acute Current Visit: Yes Hospitalist: Subjective Interval history: Mr. Menchaca was stable overnight and had good rest. The patient's family has requested placement at swing bed in [facility]. We hope to accomplish that on Thursday morning. Will have the Denis catheter out in the morning. Exam - Constitutional Vitals: Period Temp Pulse Resp BP Sys/Michaels Pulse Ox Last 24 Hr 99.1 F-100.6 F 83-92 16-20 130-171/61-79 93-94 General appearance: no acute distress - Respiratory Respiratory exam: Present: clear to auscultation bilaterally - Cardiovascular Cardiovascular exam: Present: regular rate and rhythm - GI/Abdominal GI/Abdominal exam: Present: normal bowel sounds Results - Labs CBC & BMP: 06/26/17 05:01 06/26/17 05:01 Lab Results: I have reviewed the past 24 hour labs Labs: CT scan of the hip and leg revealed no fracture. Swelling is improved.
[2017-06-28] MEDS: MULTIVITAMIN (OCUVITE) TABLET PO SCH ×2 (10:16→21:51)
[2017-06-28] MEDS: CARVEDILOL 12.5 MG TABLET PO SCH ×2 (10:17→21:51)
[2017-06-28] MEDS: PANTOPRAZOLE 40 MG TABLET PO SCH (10:17)
[2017-06-28] MEDS: FUROSEMIDE 20 MG TABLET PO SCH (10:17)
[2017-06-28] MEDS: ACETAMINOPHEN 325 MG TABLET PO PRN (11:50)
[2017-06-28] MEDS: ENOXAPARIN 40 MG/0.4 ML SYRINGE SUBCUT SCH (21:48)
[2017-06-28] MEDS: TAMSULOSIN 0.4 MG CAPSULE PO SCH (21:51)
[2017-06-29] MEDS: ACETAMINOPHEN 325 MG TABLET PO SCH ×4 (01:52→14:07)
[2017-06-29] MEDS: MULTIVITAMIN (OCUVITE) TABLET PO SCH (09:29)
[2017-06-29] MEDS: PANTOPRAZOLE 40 MG TABLET PO SCH (09:29)
[2017-06-29] MEDS: FUROSEMIDE 20 MG TABLET PO SCH (09:30)
[2017-06-29] MEDS: CARVEDILOL 12.5 MG TABLET PO SCH (09:30)
--- NOTE | 2017-06-29 09:54 | Discharge Summary ---
Hospital Course - Hospital Course Hospital Course: 89-year-old WM that presented to the ED at [facility] for frequent falls .The patient has a long and complex medical history significant for benign localized hyperplasia of the prostate, nonruptured cerebral aneurysm , cerebrovascular accident, cerebrovascular disease, chronic paroxysmal atrial fibrillation, hypertension, hyperlipidemia, anemia, obstructive sleep apnea, Olecranon bursitis of the right elbow, vitamin D deficiency, chronic lower extremity edema, and Alzheimer's dementia. Since the last fall 6 days ago [employer] , the daughter noted a gradual decline in her father's functional status. She reported that he generally ambulates very slowly with a front rolling walker however, in recent days he has not been able to stand nor ambulate. In addition , the daughter reported that during the fall her son assisted her father up and thereafter her father has been complaining of some right knee pain. She became very concerned regarding the sudden changes in her father's functional ability and transported her father to the ED for further evaluation. Patient has had a progressive decline of cognitive function over the past 12 months or so. He was felt to have advanced and worsening dementia. Patient had some knee and hip pain after his fall but CT scan of the hip and and leg did not reveal any fractures. cardiology was consulted and they adjusted some of his medications. Mental status is at his baseline. Due to worsening dementia forensic social worker was consulted. The family had decided to take him home with hospice. Arrangements have been made in that regard. - Time spent with patient Time with patient DS: Less than 30 minutes Diagnosis - Discharge Diagnosis (1) Dementia Status: Chronic Discharge Plan - Discharge Data Disposition: Hospice - Home Condition at Discharge: Stable Discharge Diet: advance to your usual diet Activity: resume usual activities as tolerated - Discharge Medications New Carvedilol [Coreg] 12.5 mg PO BID #30 tablet HYDROcodone/ACETAMIN 5-325 [[place] 5-325] 1 tablet PO Q4H PRN #30 tablet PRN Reason: Pain Mild (1-3) Docusate Sodium Cap [Colace Cap] 100 mg PO BID PRN capsule PRN Reason: Constipation Continue Acetaminophen Tab [Tylenol Tab] 650 mg PO Q6H Tamsulosin [Flomax] 0.4 mg PO QPM Furosemide 20 mg PO QAM Discontinued Metoprolol Tartrate Tab [Lopressor Tab] 25 mg PO BID #60 tablet Vit C/Vit E AC/Lut/Copper/Zinc [Preservision Lutein Softgel] 1 each PO BID - Follow Up or Referral - Forms/Instructions Exam - Constitutional Vitals: Period Temp Pulse Resp BP Sys/Michaels Pulse Ox Last 24 Hr 97.8 F-99.3 F 79-99 18-24 126-137/62-94 93-98 Exam: General: No Acute Distress HEENT: Normocephalic, atraumatic, Extra ocular movements intact Neck: Supple, No JVD Chest: Clear to auscultation B/L CV: S1 + S2 audible without murmur, gallop or rub Abd: soft, NT, Non-distended, BS + Ext: No edema Skin: No purpura, bruising or rash Rheumatologic: No Joint deformities Neurologic: Strengtg 5/5 all extremities, no gross sensory deficits Discharge Results Procedures and tests throughout hospitalization: Pending Orders 06/25/17 18:08 Blood Culture Stat Labs on day of discharge: Preliminary micro results at discharge 06/25/17 18:08 Blood Culture - Preliminary Blood No growth at 3 days 06/25/17 18:08 Blood Culture - Preliminary Blood No growth at 3 days DS: Provider Date of admission: 06/25/17 15:01 Primary care physician: . No PCP Attending physician on admission: Carl Paris MD Consults: 06/25/17 15:10 Consult to Physician [CONS] Routine Comment: Consulting Provider: Pietro Carrion Consulting Provider Notified: Yes When should Consulting Provider be notified: Now Consult to Specialist Group: Cardiology When should Consulting Provider be notified: Now Person Notified: SULMA Date Notified: 06/26/17 Time Notified: 08:34 06/25/17 15:13 Consult to Case Mgmt/Social Srvs [CONS] Routine Reason for Case Mgmt/Social Srvs: Discharge Planning Consult to Occupational Therapy [CONS] Routine Reason for Occupational Therapy: Evaluate and Treat Consult to Physical Therapy [CONS] Routine Reason for Physical Therapy: Evaluate and Treat 06/26/17 10:03 Consult to Case Mgmt/Social Srvs [CONS] Routine Reason for Case Mgmt/Social Srvs: Swingbed/SNF/Jail Consult Comment: Family unable to care for patient at home Discharging clinician: Sangita Lei MD
[2017-06-29 13:25] VITALS: BP 132/68
[2017-06-29] MEDS ORDERED: ZINC OXIDE 16% PASTE 57 GM TUBE TOP SCH (14:30)
== END 2017-06-29 14:15 | disposition hospice, home (50) | DRG 57 ==
LOC: EDBD → EDUNIT# → N.ED 12:33 → N.EDINP 15:01 → SUATTDRO 15:01 → N.4E 17:13
PROVIDERS: ADMIT Internal Medicine Infectious Disease; ATTEND Hospitalist